=== PATIENT | female | born 1960 | race African-American/Black ===

== ENCOUNTER 2020-06-13 17:18 | Emergency (ER) | payer OTHER ==
[~2020-06-13] VITALS: Ht 167.6 cm; Wt 88.9 kg
[2020-06-13 18:25] VITALS: BP 134/87
--- NOTE | 2020-06-13 18:26 | NUR ---
ED Nurse Note:pt. came with blister on left upper foot - aciclovyr was given
--- NOTE | 2020-06-13 18:36 | Emergency Room Report ---
History of Present Illness General Chief Complaint: Skin Rash/Abscess Source: Patient Present Illness HPI 59-year-old female who has metastatic breast cancer to chest and brain currently under the care of oncology has been receiving chemotherapy with the latest normal white count which was drawn yesterday here complaining of 1 week of a painful rash on the dorsum of left foot which started with tingling sensation and now has vesicular lesions formed. Patient is currently taking gabapentin and Nome for narcotic pain and pain due to her cancer. Denies any fever and chills, fall or injury. Has range of motion of foot. Patient is neurovascularly intact. Appears to be stable. Denies any blood drawn in ED and reports that it was just fine and her oncologist office yesterday. Patient is up-to-date with tetanus shot. Patient has never received any vaccination for shingles. Allergies: Coded Allergies: No Known Allergies (Unverified , 06/13/20) COVID-19 Screening Contact w/high risk pt: No Experienced COVID-19 symptoms?: No COVID-19 Testing performed MANAGER COMPENSATION: No Patient History Past Medical History: see triage record Past Surgical History: none Pertinent Family History: none Last Menstrual Period: na Now: No Immunizations: UTD Reviewed Nursing Documentation: PMH: Agreed; PSxH: Agreed Nursing Documentation-PMH Past Medical History: No History, Except For Hx Asthma: Yes Review of Systems All Other Systems: negative except mentioned in HPI Physical Exam Vital Signs Date Time Temp Pulse Resp B/P (MAP) Pulse Ox O2 Delivery O2 Flow Rate FiO2 06/13/20 17:28 98.4 80 17 134/87 (103) 98 Room Air Sp02 EP Interpretation: reviewed, normal General Appearance: no apparent distress, alert, GCS 15, non-toxic Head: normocephalic, atraumatic Eyes: bilateral eye normal inspection, bilateral eye PERRL ENT: hearing grossly normal, normal pharynx, no angioedema, normal voice Neck: full range of motion, supple/symm/no masses Respiratory: chest non-tender, lungs clear, normal breath sounds, speaking full sentences Cardiovascular #1: regular rate, rhythm, no edema, no murmur Cardiovascular #2: 2+ dorsalis pedis (R), 2+ dorsalis pedis (L) Gastrointestinal: normal bowel sounds, non tender, soft, non-distended, no guarding, no rebound Genitourinary: no CVA tenderness Musculoskeletal: back normal, no calf tenderness, non-tender Neurologic: alert, motor strength/tone normal, oriented x3, sensory intact, responsive, speech normal Psychiatric: judgement/insight normal, memory normal, mood/affect normal, no suicidal/homicidal ideation Skin: rash - Erythematous base with multiple grouped vesicular lesion on top some scabbing noted without any pus drainage and not warm to touch Lymphatic: no adenopathy Medical Decision Making PA Attestation All diagnoses and treatment plans were reviewed and discussed with my supervising physician Dr. Delgado Diagnostic Impression: Primary Impression: Shingles ER Course 59-year-old female who has metastatic breast cancer to chest and brain currently under the care of oncology has been receiving chemotherapy with the latest normal white count which was drawn yesterday here complaining of 1 week of a painful rash on the dorsum of left foot which started with tingling sensation and now has vesicular lesions formed. Patient is currently taking gabapentin and Nome for narcotic pain and pain due to her cancer. Denies any fever and chills, fall or injury. Has range of motion of foot. Patient is neurovascularly intact. Appears to be stable. Denies any blood drawn in ED and reports that it was just fine and her oncologist office yesterday. Patient is up-to-date with tetanus shot. Patient has never received any vaccination for shingles. Ddx considered but are not limited to: Eczema, scabies, lice, cellulitis, sh ingles Vital signs: are WNL, pt. is afebrile H&PE are most consistent with: Shingles ORDERS: Acyclovir, patient to continue taking meloxicam and Nome, I also prescribed Keflex as patient is immunocompromised and may also be a superimposed bacterial infection. Patient will follow-up with oncologist tomorrow. Foot x- ray ED INTERVENTIONS: First dose of acyclovir DISCHARGE: At this time pt. is stable for d/c to home. Will provide printed patient care instructions, and any necessary prescriptions. Care plan and follow up instructions have been discussed with the patient prior to discharge. Patient take medication as directed, follow primary care provider, if worsening symptom return to the emergency room Other X-Ray Diagnostic Results Other X-Ray Diagnostic Results : X-Ray ordered: Foot x-ray # of Views/Limited Vs Complete: 3 View Indication: Pain EP Interpretation: Yes REI Xray: Interpretation reviewed, by supervising MD, and agrees with findings. Interpretation: no dislocation, no soft tissue swelling, no fractures, other - No osteomyelitis Impression: No acute disease Electronically Signed by: Jeana Castellon PA-C Last Vital Signs Date Time Temp Pulse Resp B/P (MAP) Pulse Ox O2 Delivery O2 Flow Rate FiO2 06/13/20 18:25 98.4 17 134/87 98 Room Air 06/13/20 17:28 80 Disposition: HOME, SELF-CARE Condition: Stable Scripts Cephalexin* (KEFLEX*) 500 Mg Capsule 500 MG ORAL EVERY 6 HOURS for 7 Days, #28 CAP Prov: Jeana Alvarez 06/13/20 Acyclovir* (ZOVIRAX*) 800 Mg Tablet 800 MG ORAL FIVE TIMES A DAY for 7 Days, #35 TAB Prov: Jeana Alvarez 06/13/20 Referrals: NON PHYSICIAN (PCP) Patient Instructions: Shingles, [id number] Additional Instructions: Take medication as directed, follow-up with your primary care provider and your oncologist, percent symptoms return to the emergency room Jeana Alvarez Jun 13, 2020 18:36
[2020-06-13] MEDS ORDERED: ACYCLOVIR800 MG ORAL ×2 (18:37→18:51)
[2020-06-13] MEDS ORDERED: CEPHALEXIN500 MG ORAL ×2 (18:37→18:51)
[2020-06-13 19:00] VITALS: BP 134/87
--- NOTE | 2020-06-13 19:00 | NUR ---
ED Nurse Note: Pt cleared by health care Provider for discharge. DC instructions/prescription was given and explained to pt and verbalized understanding of teachings. All medical deviecs such as ID band removed. Pt is AAO x4, ambulatory and left with all personal belongings.
--- NOTE | 2020-06-14 15:43 | Diagnostic Imaging Report ---
Indication: Left foot pain Technique: 3 views left foot Comparison: none Findings: No acute fractures. No dislocations. There is mild hammertoe deformity of the second through fifth digits. Joint spaces are preserved Impression: Negative
== END 2020-06-13 19:22 | disposition home or self-care (01) ==
LOC: EMR 17:40
DX: B02.9 Zoster without complications (principal); Z85.3 Personal history of malignant neoplasm of breast; Z85.841 Personal history of malignant neoplasm of brain; M20.42 Other hammer toe(s) (acquired), left foot
CPT/HCPCS: 73630; Z7502; 99283

== ENCOUNTER 2020-08-05 07:12 | Emergency (ER) | payer OTHER ==
[~2020-08-05] VITALS: Ht 167.6 cm; Wt 90.7 kg
[~2020-08-05 07:12] MED LIST: ACYCLOVIR800 MG ORAL; CEPHALEXIN500 MG ORAL
--- NOTE | 2020-08-05 07:20 | NUR ---
ED Nurse Note: Pt ambulated to ED from home d/t chest pain on the R side that radiates to her R axilla with 8/10 scale that has been going on for 2 days. Pt is AOx4, calm and cooperative to care, VSS, on RA, afebrile on triage. Pt has hx of stage 4 CA on the R breast; took norco 5-325 today [employer]CHITECT. Pt denies any recent injury on the affected site.
--- NOTE | 2020-08-05 07:22 | NUR ---
ED Nurse Note: ERMD at bedside.
[2020-08-05] MEDS ORDERED: Ketorolac 30mg Inj IV ONE (07:30)
--- NOTE | 2020-08-05 07:42 | Emergency Room Report ---
History of Present Illness General Chief Complaint: Chest Pain Source: Patient Present Illness HPI Patient brought by a friend to the emergency department for complaint of chest pain. The chest pain is right-sided. She woke up on Alex morning with this. She has been taking sodium bicarbonate because she feels that it might be related to food that she ate. She denies any fevers or productive cough. The pain is been 9-10/10 radiating down her right shoulder. She is also taking Kendall that is helped with the pain. She rates the pain 8/10 at the moment. She does not like ibuprofen because it bothers her stomach. Sodium bicarb has not helped very much. The patient has a breast cancer this metastasized to bones, lung and brain. She is taking chemotherapy orally. She has had radiation therapy. She recently saw her doctor and was told that things are stable. She feels the pain in her chest originates from underneath her implant. Patient also has a history of asthma. Patient had shingles involving her foot on the left-hand side several months ago. She also has sciatica. This is controlled by Kendall. Patient denies exposure to COVID positive contacts. No sore throat, palpitations, nausea, vomiting, diarrhea, dysuria, abdominal pain, shortness of breath, rashes, depression, anxiety, visual changes, dizziness, headache. 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 Reviewed Nursing Documentation: PMH: Agreed; PSxH: Agreed Nursing Documentation-PMH Hx Asthma: Yes Review of Systems All Other Systems: negative except mentioned in HPI Physical Exam Vital Signs Date Time Temp Pulse Resp B/P (MAP) Pulse Ox O2 Delivery O2 Flow Rate FiO2 08/05/20 07:21 97.7 100 18 160/111 (127) 95 Room Air Sp02 EP Interpretation: reviewed, normal General Appearance: well appearing, no apparent distress, GCS 15, non-toxic Head: normocephalic Eyes: bilateral eye normal inspection, bilateral eye PERRL, bilateral eye EOMI ENT: moist mucus membranes Neck: supple Respiratory: lungs clear, normal breath sounds, other - Some chest wall tenderness and under R breast implant Cardiovascular #1: regular rate, rhythm, no edema Cardiovascular #2: 2+ radial (R) Gastrointestinal: normal inspection, normal bowel sounds, non tender, no mass, non-distended Genitourinary: no CVA tenderness Musculoskeletal: back normal, normal range of motion, no calf tenderness, gait/station normal Neurologic: alert, oriented x3, normal gait, grossly normal Psychiatric: anxious Skin: no rash, warm/dry, other - Bilateral mastectomy scars and implants Medical Decision Making Diagnostic Impression: Primary Impression: Chest wall pain Additional Impression: H/O malignant neoplasm of breast ER Course Patient presents with right-sided chest pain for 3 days. Differential includes chest wall strain, bony metastasis, pleurisy, pulmonary embolus amongst others. Based on her vital signs pulmonary versus less likely. We need to exclude cardiac injury also. Patient evaluated with EKG, right rib series and labs. Patient treated with Toradol and Pepcid. Patient placed on playground monitor. This is an atypical history for cardiac disease. EKG normal sinus rhythm with normal EKG. CXR ribs, no fx or obvious mets. Labs with elevated c reactive protein. WBC normal. Pain resolved. Discussed probable etiologies of pain and treatment plan. Patient advised to follow up with her own MD. Patient stable for outpatient observation and treatment. Laboratory Tests Test 08/05/20 07:45 White Blood Count 5.6 K/UL (4.8-10.8) Red Blood Count 3.53 M/UL (4.20-5.40) L Hemoglobin 11.2 G/DL (12.0-16.0) L Hematocrit 31.5 % (37.0-47.0) L Mean Corpuscular Volume 89 FL (80-99) Mean Corpuscular Hemoglobin 31.8 PG (27.0-31.0) H Mean Corpuscular Hemoglobin Concent 35.6 G/DL (32.0-36.0) Red Cell Distribution Width 15.2 % (11.6-14.8) H Platelet Count 188 K/UL (150-450) Mean Platelet Volume 6.9 FL (6.5-10.1) Neutrophils (%) (Auto) 80.8 % (45.0-75.0) H Lymphocytes (%) (Auto) 9.2 % (20.0-45.0) L Monocytes (%) (Auto) 6.9 % (1.0-10.0) Eosinophils (%) (Auto) 1.4 % (0.0-3.0) Basophils (%) (Auto) 1.7 % (0.0-2.0) Prothrombin Time 10.4 SEC (9.30-11.50) Prothrombin Time INR 0.9 (0.9-1.1) Activated Partial Thromboplast Time 27 SEC (23-33) Sodium Level 138 MMOL/L (136-145) Potassium Level 3.8 MMOL/L (3.5-5.1) Chloride Level 102 MMOL/L (98-107) Carbon Dioxide Level 32 MMOL/L (21-32) Anion Gap 4 mmol/L (5-15) L Blood Urea Nitrogen 8 mg/dL (7-18) Creatinine 1.1 MG/DL (0.55-1.30) Estimated Glomerular Filtration Rate > 60 mL/min (>60) Glucose Level 125 MG/DL (74-106) H Calcium Level 8.7 MG/DL (8.5-10.1) Total Bilirubin 0.7 MG/DL (0.2-1.0) Aspartate Amino Transferase (AST) 22 U/L (15-37) Alanine Aminotransferase (ALT) 28 U/L (12-78) Alkaline Phosphatase 149 U/L (46-116) H Total Creatine Kinase 124 U/L (26-308) Troponin I 0.000 ng/mL (0.000-0.056) C-Reactive Protein, Quantitative 7.1 mg/dL (0.00-0.90) H Pro-B-Type Natriuretic Peptide 44 pg/mL (0-125) Total Protein 7.2 G/DL (6.4-8.2) Albumin 3.4 G/DL (3.4-5.0) Globulin 3.8 g/dL Albumin/Globulin Ratio 0.9 (1.0-2.7) L Lipase 78 U/L (73-393) EKG Diagnostic Results Rate: normal Rhythm: NSR ST Segments: no acute changes Rhythm Strip Diag. Results Rhythm: NSR, no PVC's, no ectopy Chest X-Ray Diagnostic Results Chest X-Ray Diagnostic Results : Chest X-Ray Ordered: Yes # of Views/Limited/Complete: 1 View Indication: Chest Pain EP Interpretation: Yes Interpretation: no effusion, no pneumothorax, other - increased interstitial gunderson, surgical clips Impression: No acute disease Electronically Signed by: Electronically signed by Fritz Sanchez MD Other X-Ray Diagnostic Results Other X-Ray Diagnostic Results : X-Ray ordered: Right ribs # of Views/Limited Vs Complete: 4 View Indication: Pain EP Interpretation: Yes Interpretation: no dislocation, no soft tissue swelling, no fractures, other - Surgical clips Impression: Other Electronically Signed by: Electronically signed by Fritz Sanchez MD Last Vital Signs Date Time Temp Pulse Resp B/P (MAP) Pulse Ox O2 Delivery O2 Flow Rate FiO2 08/05/20 09:09 97.7 82 19 138/98 98 Room Air Status: improved Disposition: HOME, SELF-CARE Condition: Improved Scripts Famotidine* (Pepcid 20mg tablet*) 20 Mg Tablet 20 MG ORAL DAILY, #30 TAB 0 Refills Prov: Fritz Sanchez MD 08/05/20 Naproxen* (NAPROSYN*) 250 Mg Tablet 250 MG ORAL TID PRN for For Pain, #20 TAB 0 Refills Prov: Fritz Sanchez MD 08/05/20 Acetaminophen (Tylenol) 325 Mg Tablet 650 MG ORAL Q6H PRN for Prn Pain/Headache/Temp > 101, #20 TAB 0 Refills Prov: Fritz Sanchez MD 08/05/20 Referrals: NON PHYSICIAN (PCP) Fritz Sanchez MD Aug 05, 2020 07:42
[2020-08-05] MEDS ORDERED: NEURONTIN300 MG ORAL (07:43)
[2020-08-05] MEDS ORDERED: NORCO 5-325 TA1 EAC1 ORAL (07:43)
[2020-08-05] MEDS ORDERED: XELODA500 MG ORAL (07:43)
--- NOTE | 2020-08-05 07:48 | NUR ---
ED Nurse Note: Pt taken to CT on stable condition.
[2020-08-05 07:53] VITALS: BP 160/111
[2020-08-05 08:01] LABS: BASOPHILS % (AUTO) 1.7 % (0.0-2.0); EOSINOPHILS % (AUTO) 1.4 % (0.0-3.0); HEMATOCRIT 31.5 % (37.0-47.0); HEMOGLOBIN 11.2 G/DL (12.0-16.0); LYMPHOCYTES % (AUTO) 9.2 % (20.0-45.0); MEAN CORPUSCULAR VOLUME 89 FL (80-99); MONOCYTES % (AUTO) 6.9 % (1.0-10.0); NEUTROPHILS % (AUTO) 80.8 % (45.0-75.0); PLATELET COUNT 188 K/UL (150-450); RED BLOOD COUNT 3.53 M/UL (4.20-5.40); RED CELL DISTRIBUTION WIDTH 15.2 % (11.6-14.8); WHITE BLOOD COUNT 5.6 K/UL (4.8-10.8)
[2020-08-05 08:05] LABS: ANION GAP 4 mmol/L (5-15); BLOOD UREA NITROGEN 8 mg/dL (7-18); CALCIUM 8.7 MG/DL (8.5-10.1); CARBON DIOXIDE 32 MMOL/L (21-32); CHLORIDE 102 MMOL/L (98-107); CREATININE 1.1 MG/DL (0.55-1.30); POTASSIUM 3.8 MMOL/L (3.5-5.1); SODIUM 138 MMOL/L (136-145)
--- NOTE | 2020-08-05 08:10 | NUR ---
ED Nurse Note: Pt returned from CT.
[2020-08-05 08:13] LABS: INR 0.9 (0.9-1.1)
[2020-08-05 08:19] LABS: ALANINE AMINOTRANSFERASE 28 U/L (12-78); ALBUMIN 3.4 G/DL (3.4-5.0); ALBUMIN/GLOBULIN RATIO 0.9 (1.0-2.7); ALKALINE PHOSPHATASE 149 U/L (46-116); ASPARTATE AMINO TRANSFERASE 22 U/L (15-37); BILIRUBIN,TOTAL 0.7 MG/DL (0.2-1.0); CREATINE KINASE 124 U/L (26-308)
[2020-08-05] MEDS ORDERED: TYLENOL325 MG ORAL (09:00)
[2020-08-05] MEDS ORDERED: FAMOTIDINE20 MG ORAL (09:00)
[2020-08-05] MEDS ORDERED: NAPROXEN250 MG ORAL (09:00)
[2020-08-05 09:09] VITALS: BP 138/98
--- NOTE | 2020-08-05 09:09 | NUR ---
ER DISCHARGE NOTE: Patient is cleared to be discharged per ERMD, pt is aox4, on room air, with stable vital signs. pt was given dc and prescription instructions, pt was able to verbalize understanding, pt id band and iv site removed without complications. pt is able to ambulate with steady gait. pt took all belongings.
--- NOTE | 2020-08-06 07:41 | Diagnostic Imaging Report ---
EXAM: XR Right Ribs and AP Chest, 3 or More Views CLINICAL HISTORY: PAIN TECHNIQUE: Frontal and oblique views of the right ribs and frontal view of the chest. COMPARISON: No relevant prior studies available. FINDINGS/IMPRESSION: Chronically increased interstitial markings. No focal consolidation, pleural effusion, or pneumothorax. No right-sided rib fracture. Right axillary clips, correlate with surgical history.
[2020-08-06] MEDS ORDERED: PREDNISONE20 MG ORAL (18:27)
[2020-08-06] MEDS ORDERED: VENTOLIN HFA18 GM INH (18:27)
[2020-08-06] MEDS ORDERED: ZITHROMAX250 MG ORAL (18:27)
--- NOTE | 2020-08-07 14:33 | Cardiology Report ---
APPROVED REPORT EKG Measurement Heart [id number] <Conclusion> Normal sinus rhythm Normal ECG
== END 2020-08-05 09:09 | disposition home or self-care (01) ==
LOC: EMR 07:21
DX: R07.89 Other chest pain (principal); C50.919 Malignant neoplasm of unspecified site of unspecified female breast; C78.00 Secondary malignant neoplasm of unspecified lung; C79.51 Secondary malignant neoplasm of bone; C79.31 Secondary malignant neoplasm of brain; Z92.21 Personal history of antineoplastic chemotherapy; J45.909 Unspecified asthma, uncomplicated; Z92.3 Personal history of irradiation; Z90.10 Acquired absence of unspecified breast and nipple
CPT/HCPCS: 36415; 71101; 80053; 82550; 83690; 83880; 84484; 85025; 85610; 85730; 86140; 93005; 96374; 96375; J1885; S0028; Z7502; 99284

== ENCOUNTER 2020-08-06 17:21 | Emergency (ER) | payer OTHER ==
[~2020-08-06] VITALS: Ht 167.6 cm; Wt 90.7 kg
[~2020-08-06 17:21] MED LIST changes: +FAMOTIDINE20 MG ORAL; +NAPROXEN250 MG ORAL; +NEURONTIN300 MG ORAL; +NORCO 5-325 TA1 EAC1 ORAL; +TYLENOL325 MG ORAL; +XELODA500 MG ORAL
[2020-08-06 18:06] VITALS: BP 150/88
--- NOTE | 2020-08-06 18:26 | Emergency Room Report ---
History of Present Illness General Chief Complaint: Asthma Present Illness HPI 59-year-old female for personal history of lung cancer is also seen in [place] ER yesterday for chest pain had a full work-up and was discharged with antacids and some pain medication here complaining of difficulty breathing after she realized that her neighbor was burning trash and did not have her inhaler at home. Patient was advised history of asthma. Denies any cough and congestion at this time. Patient speaking full sentences, no accessory muscle use seen. Patient respiratory rate was rechecked within normal limit. Denies chest pain at this time. Denies pleuritic chest pain. Denies diarrhea, loss of taste and smell. Allergies: Coded Allergies: No Known Allergies (Unverified , 06/13/20) COVID-19 Screening Contact w/high risk pt: No Experienced COVID-19 symptoms?: No COVID-19 Testing performed HOTBED TRANSFER OPERATOR: No Patient History Past Medical History: see triage record Past Surgical History: none Pertinent Family History: none Now: No Immunizations: UTD Reviewed Nursing Documentation: PMH: Agreed; PSxH: Agreed Nursing Documentation-PMH Hx Asthma: Yes Review of Systems All Other Systems: negative except mentioned in HPI Physical Exam Vital Signs Date Time Temp Pulse Resp B/P (MAP) Pulse Ox O2 Delivery O2 Flow Rate FiO2 08/06/20 18:01 98.1 103 26 150/88 (108) 96 Room Air Sp02 EP Interpretation: reviewed, normal General Appearance: no apparent distress, alert, GCS 15, non-toxic Head: normocephalic, atraumatic Eyes: bilateral eye normal inspection, bilateral eye PERRL ENT: hearing grossly normal, normal pharynx, no angioedema, normal voice Neck: full range of motion, supple/symm/no masses Respiratory: chest non-tender, lungs clear, normal breath sounds, no rhonchi, no respiratory distress, no retraction, no accessory muscle use, no wheezing, speaking full sentences Cardiovascular #1: regular rate, rhythm, no edema, no gallop Cardiovascular #2: 2+ carotid (R), 2+ carotid (L), 2+ radial (R), 2+ radial (L), 2+ dorsalis pedis (R), 2+ dorsalis pedis (L) Gastrointestinal: normal bowel sounds, non tender, soft, non-distended, no guarding, no rebound Rectal: deferred Genitourinary: no CVA tenderness Musculoskeletal: back normal, no calf tenderness Neurologic: alert, motor strength/tone normal, oriented x3, sensory intact, responsive, speech normal Psychiatric: judgement/insight normal, memory normal, mood/affect normal, no suicidal/homicidal ideation Skin: no rash Lymphatic: no adenopathy Medical Decision Making PA Attestation All diagnoses and treatment plans were reviewed and discussed with my s upervising physician Dr. Delgado Diagnostic Impression: Primary Impression: SOB (shortness of breath) Additional Impression: Asthma with bronchitis ER Course 59-year-old female for personal history of lung cancer is also seen in [place] ER yesterday for chest pain had a full work-up and was discharged with antacids and some pain medication here complaining of difficulty breathing after she realized that her neighbor was burning trash and did not have her inhaler at home. Patient was advised history of asthma. Denies any cough and congestion at this time. Patient speaking full sentences, no accessory muscle use seen. Patient respiratory rate was rechecked within normal limit. Denies chest pain at this time. Denies pleuritic chest pain. Denies diarrhea, loss of taste and smell. Ddx considered but are not limited to: bronchitis, PNA, URI viral, bacterial bronchitis, asthma exacerbation Vital signs: are WNL, pt. is afebrile H&PE are most consistent with:SOB, Asthma with bronchitis ORDERS: Chest x-ray, prednisone, azithromycin, albuterol ED INTERVENTIONS: None required at this time. DISCHARGE: At this time pt. is stable for d/c to home. Will provide printed pa christian care instructions, and any necessary prescriptions. Care plan and follow up instructions have been discussed with the patient prior to discharge. Advised patient to follow primary care provider, take medication as directed symptoms return to the emergency room at this time no wheezing auscultated, chest x-ray within normal limits to chest x-ray was developed diarrhea yesterd ay. Patient in no respiratory distress, not using any accessory muscles to breathe. O2 sats within normal limits. No breathing treatment needed at this time. Chest X-Ray Diagnostic Results Chest X-Ray Diagnostic Results : Chest X-Ray Ordered: Yes # of Views/Limited/Complete: 1 View Indication: Shortness of Breath EP Interpretation: Yes PA Xray: Interpretation reviewed, by supervising , and agrees with findings. Interpretation: no consolidation, no effusion, no pneumothorax Impression: No acute disease Electronically Signed by: Jeana Castellon PA-C Last Vital Signs Date Time Temp Pulse Resp B/P (MAP) Pulse Ox O2 Delivery O2 Flow Rate FiO2 08/06/20 18:06 98.1 99 26 150/88 96 Room Air Disposition: HOME, SELF-CARE Condition: Stable Scripts Albuterol Sulfate (VENTOLIN HFA) 18 Gm Hfa.aer.ad 2 PUFFS INH EVERY 6 HOURS, #18 GM 0 Refills Prov: Jeana Alvarez 08/06/20 Prednisone* (PREDNISONE*) 20 Mg Tablet 40 MG ORAL DAILY for 5 Days, #10 TAB Prov: Jeana Alvarez 08/06/20 Azithromycin* (ZITHROMAX*) 250 Mg Tablet 250 MG ORAL DAILY, #6 TAB 0 Refills Take two tables once daily for 1 day, then one tablet once daily for 4 days. Prov: Jeana Alvarez 08/06/20 Patient Instructions: Asthma, Adult Additional Instructions: Take medication as directed, follow primary care provider, if worsening symptoms return to the emergency room Jeana Alvarez Aug 06, 2020 18:26
[2020-08-06] MEDS ORDERED: PREDNISONE20 MG ORAL (18:27)
[2020-08-06] MEDS ORDERED: VENTOLIN HFA18 GM INH (18:27)
[2020-08-06] MEDS ORDERED: ZITHROMAX250 MG ORAL (18:27)
[2020-08-06 18:40] VITALS: BP 150/88
--- NOTE | 2020-08-07 16:15 | Diagnostic Imaging Report ---
Indication: Shortness of breath Technique: One view of the chest Comparison: 08/06/2020 Findings: Slight opacity of the right lateral costophrenic sulcus could represent atelectasis or a small amount of pleural fluid. Lungs and pleural spaces are clear otherwise. The heart size is normal. Impression: Possible right lateral basilar atelectasis and/or pleural fluid. No acute process otherwise
== END 2020-08-06 19:00 | disposition home or self-care (01) ==
LOC: EMR 18:56
DX: J45.909 Unspecified asthma, uncomplicated (principal); Z85.118 Personal history of other malignant neoplasm of bronchus and lung
CPT/HCPCS: 71045; Z7502; 99283